=== PATIENT | female | born 1955 | race Caucasian/White ===

== ENCOUNTER 2019-12-18 17:55 | Emergency (ER) | payer MEDICARE, MEDICAID ==
[~2019-12-18] VITALS: Ht 160 cm; Wt 76.8 kg
[~2019-12-18 17:55] MED LIST: ACET-3071 PO; ADV50100 IH; ALBU18HF2 INH; ALEN70TA60 PO; ARIP15TA3 PO; ATOR20TA PO; BENZOTROPINE PO; CARB100C9 PO; DIVA-81 PO; FENO200C PO; HALO10TA13 PO; HALO5AMP2 INJ; HYDR-4383 PO; LEVO100T9 PO; LISI-604 PO; LITH150C8 PO; METF-900 PO; MONT10TA26 PO; MULT-1085 PO; NAPR220C15 PO; OMEP10SU2 PO; PROM12.510 PO; SENN-129 PO; SPIIN INH; TEMA30CA5 PO; TRIA1CAP6 PO; VAL5T PO; ZIPR60CA7 PO
[2019-12-18 20:28] VITALS: BP 120/64
--- NOTE | 2019-12-18 21:25 | NUR ---
Pt ambulatory to restroom with assistance.
== END 2019-12-18 22:45 | disposition home or self-care (01) ==
LOC: ER 17:55
DX: S32.10XA Unspecified fracture of sacrum, initial encounter for closed fracture (principal); M25.552 Pain in left hip; I10 Essential (primary) hypertension; J44.9 Chronic obstructive pulmonary disease, unspecified; E11.9 Type 2 diabetes mellitus without complications; F31.9 Bipolar disorder, unspecified; Z88.8 Allergy status to other drugs, medicaments and biological substances; Z79.899 Other long term (current) drug therapy; W19.XXXA Unspecified fall, initial encounter; Y93.89 Activity, other specified; Y92.89 Other specified places as the place of occurrence of the external cause; Y99.8 Other external cause status
CPT/HCPCS: 72128; 72131; 73700; 99285